=== PATIENT | male | born 1965 | race Caucasian/White ===

== ENCOUNTER 2021-05-31 06:00 | Day surgery (SDC) | payer OTHER ==
[2021-05-21 13:54] VITALS: BMI 26.2
[2021-05-31] MEDS ORDERED: MIDAZOLAM HCL 2 MG/2 ML SINGLE DOSE VIAL ONE (06:52)
[2021-05-31] MEDS ORDERED: ROPIVACAINE HCL 0.5% 30ML VIAL ONE (06:53)
[2021-05-31] MEDS ORDERED: EPINEPHrine/PF 1 MG/1 ML (1:1,000) AMPULE ONE (07:13)
[2021-05-31] MEDS ORDERED: BUPIVACAINE HCL/PF 2.5 MG/ML - 30 ML VIAL IJ ONE (07:13)
[2021-05-31] MEDS ORDERED: ceFAZolin SODIUM 1 GM VIAL ONE (07:49)
[2021-05-31] MEDS ORDERED: DEXAMETHASONE SOD PHOSPHATE 4 MG/1 ML VIAL ONE (07:51)
[2021-05-31] MEDS ORDERED: ONDANSETRON 4 MG/2 ML VIAL ONE (07:51)
[2021-05-31] MEDS ORDERED: PROPOFOL 20 ML ONE ×4 (08:20→09:32)
[2021-05-31] MEDS ORDERED: EPINEPHrine 1:1,000 1 MG/1 ML - 30ML VIAL (INJECTION) ONE (08:20)
[2021-05-31] MEDS ORDERED: PHENYLEPHRINE HCL 10 MG/1 ML SINGLE DOSE VIAL ONE ×2 (08:29)
[2021-05-31] MEDS ORDERED: ACETAMINOPHEN 1000 MG/100 ML VIAL (NON FORMULARY) IVPB ONE ×2 (10:00→10:30)
[2021-05-31] MEDS ORDERED: ACETAMINOPHEN INJECTION 100 ML IVPB ONE (10:04)
[2021-05-31] MEDS ORDERED: oxyCODONE HCL 5 MG TABLET PO PRN (10:06)
[2021-05-31] MEDS ORDERED: ONDANSETRON 4 MG/2 ML VIAL IVPUSH PRN (10:06)
[2021-05-31] MEDS ORDERED: LACTATED RINGERS SOLUTION 1,000 ML IV SCH (10:15)
[2021-05-31] MEDS ORDERED: HYDROmorphone HCL/PF 1 MG/ML VIAL IVPUSH ONE (10:20)
[2021-05-31] MEDS ORDERED: oxyCODONE HCL 5 MG TABLET PO ONE (10:23)
[2021-05-31] MEDS ORDERED: oxyCODONE HCL 5 MG TABLET ONE (10:30)
[2021-05-31 12:05] VITALS: TEMP 97.7
[2021-05-31 12:08] VITALS: BP 135/78; PULSE 80
== END 2021-05-31 12:00 | disposition home or self-care (01) ==
LOC: FASU 06:00
PROVIDERS: ATTEND Orthopaedic Surgery
PROC: 0MQ20ZZ Repair Left Shoulder Bursa and Ligament, Open Approach (ICD-10-PCS; 2021-05-31)
PROC: 0LM24ZZ Reattachment of Left Shoulder Tendon, Percutaneous Endoscopic Approach (ICD-10-PCS; principal; 2021-05-31 08:04)
PROC: 0RBK4ZZ Excision of Left Shoulder Joint, Percutaneous Endoscopic Approach (ICD-10-PCS; 2021-05-31 08:04)
DX: S46.012A Strain of muscle(s) and tendon(s) of the rotator cuff of left shoulder, initial encounter (principal); S43.432A Superior glenoid labrum lesion of left shoulder, initial encounter; S42.202A Unspecified fracture of upper end of left humerus, initial encounter for closed fracture; S43.422A Sprain of left rotator cuff capsule, initial encounter; X58.XXXA Exposure to other specified factors, initial encounter; Y93.9 Activity, unspecified; Y92.9 Unspecified place or not applicable
CPT/HCPCS: 88304-TC; 94760; J0131

== ENCOUNTER 2023-08-01 11:29 | Emergency (ER) | payer OTHER ==
[2023-08-01 11:40] VITALS: BP 124/73; PULSE 75; RESP 18; TEMP 97.8; BMI 25.7
[2023-08-01] MEDS ORDERED: LIDOCAINE HCL 1%, 10 MG/ML (50 mL VIAL) SQ ONE (11:59)
[2023-08-01] MEDS ORDERED: LIDOCAINE HCL 1%, 10 MG/ML (20ML VIAL) ONE (12:00)
== END 2023-08-01 12:30 | disposition home or self-care (01) ==
LOC: FER 11:29
PROC: 3E0T3BZ Introduction of Anesthetic Agent into Peripheral Nerves and Plexi, Percutaneous Approach (ICD-10-PCS; principal; 2023-08-01)
DX: L03.012 Cellulitis of left finger (principal)
CPT/HCPCS: 87070; 87186; 87205; 99283-25

== ENCOUNTER 2023-11-19 08:43 | Emergency (ER) | payer OTHER ==
[2023-11-19 08:53] VITALS: BP 150/87; PULSE 64; RESP 18; TEMP 97.7; BMI 26.1
== END 2023-11-19 09:50 | disposition home or self-care (01) ==
LOC: FER 08:43
DX: M79.645 Pain in left finger(s) (principal); L03.012 Cellulitis of left finger
CPT/HCPCS: 99283-25